=== PATIENT | male | born 1970 | race Caucasian/White ===

== ENCOUNTER 2021-07-31 07:16 | Emergency (ER) | payer BC ==
[~2021-07-31] VITALS: Ht 180.3 cm; Wt 83.0 kg
[2021-07-31 07:25] VITALS: BP 144/85
[2021-07-31] MEDS ORDERED: LIDOCAINE 1%/EPI 1:100,000 20 ML VIAL. INJ ONE (07:45)
--- NOTE | 2021-07-31 08:01 | RAD ---
EXAM: XR FOOT_LEFT 2 VIEWS 07/31/2021 7:42 AM CLINICAL INDICATION: Foreign body COMPARISON: None TECHNIQUE: AP and lateral views of the right foot FINDINGS: No acute fracture. Alignment is normal. Joint spaces are maintained. There is a tiny plant ar calcaneal enthesophyte. There are 2 tiny round radiopaque densities in the subcutaneous soft tissu e along the plantar aspect of the heel measuring up to 1.7 mm. These are nonspecific. IMPRESSION: Two tiny round radiopaque densities in the subcutaneous soft tissue at the plantar heel. These could be soft tissue calcifications or tiny foreign bodies. Electronically signed by: Georgiana Lino MD (07/31/2021 7:59 AM) [facility]
[2021-07-31] MEDS ORDERED: AMOXICILLIN/K CLAV 875/125MG TABLET. PO ONE (08:30)
[2021-07-31] MEDS ORDERED: DIPHTH,PERTUSS(ACELL),TET TOX 0.5 ML DISP.SYRIN. VAX IM ONE (08:30)
--- NOTE | 2021-07-31 08:38 | PHYS DOC ---
Past Medical History Past Surgical History: Appendectomy, Tonsillectomy Additional Past Surgical Histo: hernia, basil cell carcinoma Smoking Status: Never Smoker Alcohol Use: Occasionally General Adult EDM: Chief Complaint: LACERATION/AVULSION HPI: HPI: Patient is a 50 year old male who presents to the emergency department today w ith a laceration to the dorsum of his right foot. Patient states that he was carrying a glass dog bowl when it slipped from his hand and fell and broke against the floor. He states that a piece of glass cut the dorsum of his foot. This happened approximately 45 minutes prior to arrival here in emergency department. Patient denies any numbness, tingling, or weakness in his feet or toes. He denies any other injury. His last tetanus was in 2001. Review of Systems: Review of Systems: Constitutional: Denies fever or chills. [] Eyes: Denies change in visual acuity. [] HENT: Denies nasal congestion or sore throat. [] Respiratory: Denies cough or shortness of breath. [] Cardiovascular: Denies chest pain or edema. [] GI: Denies abdominal pain, nausea, vomiting, bloody stools or diarrhea. [] : Denies dysuria. [] Musculoskeletal: Denies back pain or joint pain. [] Integument: Denies rash. [] Neurologic: Denies headache, focal weakness or sensory changes. [] Endocrine: Denies polyuria or polydipsia. [] Lymphatic: Denies swollen glands. [] Psychiatric: Denies depression or anxiety. [] Heart Score: C/O Chest Pain: No Family History: Family History: Noncontributory Current Medications: Current Medications Medications (Trade) Dose Ordered Sig/Fabiana Start Time Stop Time Status Last Admin Dose Admin Lidocaine/ Epinephrine (LIDOCAINE 1%-EPI 1:100,000 Multi-Dose) 20 ml 1X ONCE 07/31/21 07:45 07/31/21 07:46 DC Allergies: Allergies: Allergies Coded Allergies Type Severity Reaction Last Updated Verified No Known Drug Allergies 07/31/21 No Physical Exam: PE: Constitutional: Well developed, well nourished, no acute distress, non-toxic appearance. [] HENT: Normocephalic, atraumatic, bilateral external ears normal, oropharynx moist, no oral exudates, nose normal. [] Eyes: PERRLA, EOMI, conjunctiva normal, no discharge. [] Neck: Normal range of motion, no tenderness, supple, no stridor. [] Cardiovascular:Heart rate regular rhythm, no murmur [] Lungs & Thorax: Bilateral breath sounds clear to auscultation [] Abdomen: Bowel sounds normal, soft, no tenderness, no masses, no pulsatile mas ses. [] Skin: Warm, dry, no erythema, no rash. There is a 3 cm laceration between the great and second toe on the dorsum of the right foot. [] Back: No tenderness, no CVA tenderness. [] Extremities: No tenderness, no cyanosis, no clubbing, ROM intact, no edema. Extensor tendon mechanism to the right foot are intact. Right foot is neurovascularly intact. Neurologic: Alert and oriented X 3, normal motor function, normal sensory function, no focal deficits noted. [] Psychologic: Affect normal, judgement normal, mood normal. [] Current Patient Data: Vital Signs: Vital Signs Date Time Temp Pulse Resp B/P (MAP) Pulse Ox O2 Delivery O2 Flow Rate FiO2 07/31/21 07:25 98.6 74 18 144/85 (104) 99 Room Air 98.6 EKG: EKG: [] Radiology/Procedures: Radiology/Procedures: EXAM: XR FOOT_LEFT 2 VIEWS 07/31/2021 7:42 AM CLINICAL INDICATION: Foreign body COMPARISON: None TECHNIQUE: AP and lateral views of the right foot FINDINGS: No acute fracture. Alignment is normal. Joint spaces are maintained. There is a tiny plantar calcaneal enthesophyte. There are 2 tiny round radiopaque densities in the subcutaneous soft tissue along the plantar aspect of the heel measuring up to 1.7 mm. These are nonspecific. IMPRESSION: Two tiny round radiopaque densities in the subcutaneous soft tissue at the plantar heel. These could be soft tissue calcifications or tiny foreign bodies. Electronically signed by: Georgiana Lino MD (07/31/2021 7:59 AM) [facility] Impression: Laceration to the dorsal surface of the right foot Course & Med Decision Making: Course & Med Decision Making Patient remained hemodynamically stable in the emergency department. He was evaluated at the bedside with a physical exam. Plain films were obtained to look for any evidence of retained foreign body. There is no evidence of retained foreign body over the location of the laceration. Patient's tetanus was updated. His wound was washed out with 250 cc of normal saline under pressure. I then closed the wound with three 4-0 nylon sutures. Please see my procedure note for further details. Given that this was a dog bowl, I did start the patient on Augmentin here in the emergency department. Patient will be discharged home. I have given him return precautions should he develop any redness, swelling, drainage from his wound. I have also advised him to have the sutures removed in 7 days. Dragon Disclaimer: Harjinder Disclaimer: This electronic medical record was generated, in whole or in part, using a voice recognition dictation system. Departure Departure Impression: Primary Impression: Foot laceration Disposition: HOME / SELF CARE / HOMELESS Condition: IMPROVED Patient Instructions: Laceration Care, Adult Scripts Amoxicillin/Potassium Clav (AUGMENTIN [id number] TABLET) 1 Each Tablet 1 TAB PO BID for 10 Days, #20 TAB 0 Refills Prov: GENEVA HUSAIN MD 07/31/21 GENEVA HUSAIN MD July 31, 2021 08:38
[2021-07-31] MEDS ORDERED: AMOX1TAB61 PO (08:46)
[2021-07-31] MEDS ORDERED: BACITRACIN TOPICAL OINT PACKET. TP ONE ×2 (08:51→09:00)
== END 2021-07-31 09:30 | disposition home or self-care (01) ==
LOC: ER 07:16
DX: S91.311A Laceration without foreign body, right foot, initial encounter (principal); W20.8XXA Other cause of strike by thrown, projected or falling object, initial encounter; Y93.89 Activity, other specified; Y92.89 Other specified places as the place of occurrence of the external cause; Y99.8 Other external cause status
CPT/HCPCS: 12002; 73620; 90471; 90715; 99283; J3490